=== PATIENT | male | born 1965 | race Caucasian/White ===

== ENCOUNTER 2022-12-24 16:15 | Outpatient (RCR) | payer BC, SELFPAY | END 2023-02-21 08:48 | disposition home or self-care (01) | PROVIDERS: PCP Pediatrics; Visit Provider Family Medicine | DX: R10.32 Left lower quadrant pain (principal); Z51.89 Encounter for other specified aftercare | CPT/HCPCS: 97110; 97140; 97161 ==

== ENCOUNTER 2023-04-15 06:16 | Day surgery (SDC) | payer BC, SELFPAY ==
[2023-04-15] VITALS (7 sets, daily range): BP systolic 115–139; BP diastolic 84–95; PULSE 68–80; RESP 14–16; TEMP 36.3–36.7; O2SAT 94–99; BMI 28.5
--- OUTSIDE RECORDS SUMMARY | 2023-04-15 06:19 | XMS_ITS | Continuity of Care Document ---
Author Name Unknown Organization [facility] Address [address] [place] [address] Phone Care Team Providers Care Ornamental Ironworking Supervisor Name Role Phone Mat Moyer MD Unavailable Unavailable Allergies, Adverse Reactions, Alerts Substance Reaction Status Criticality trimethoprim Hives Active No Information sulfamethoxazole Hives Active No Informat ion Medications Medication Instructions Dosage Effective Dates (start - stop) Status Comments ADVIL (unknown strength) Not Available - Active Procedures Procedure Date Office/Outpatient Visit,[facility] 2015 X-Ray Exam Lwr Spine, Min 4 Views Office/Outpatient Visit,Est, Mod 2011 X-Ray Exam Of Neck Spine2-3 Views Office/Outpatient Visit,Est, Mod 2011 X-Ray Exam Of Neck Spine2-3 Views Postop Followup Visit X-Ray Exam Of Neck Spine2-3 Views Neck Spine Fuse & Removal Addl 12 Insert Spine Fix Dev, Ant, 2-3 Seg Allograft, Spine Surg, Structural Assist Neck Spine Fuse & Removal Addl Ma Assist Insert Spine Fix Dev, Ant, 2-3 Se g Office/Outpatient Visit,[facility] [place] 2011 X-Ray Exam Of Neck Spine2-3 Views Advance Directives Directive Yes / No Effective Date File Name No Information Encounters Encounter Description Practice Location Reason(s) For Visit Diagnoses Date Provider Providers Copied on Encounter Office/Outpa tient Visit,[facility], [address], [place], [place], [address], [place] tel:[phone] [facility] OverweightSpi nal stenosis, lumbar regionSpondyl olysis, lumbar regionOther spondylosis, lumbar region Apr- [address] [facility], [address] [place] [address], [address], [place], [place], [address] , [place]. tel:[phone] Referring Provider: Mat Moyer, [facility] [address], [address], [place], [address]. tel:[phone] Office/Outpa tient Visit,Est, Mod Z [facility], [address] [place], [place] [address]Suite [facility] [place], [place], [address], [place] tel:[phone] [facility] No Information [address] [facility] [place], [address], [address], [place], [place], [address] , [place]. tel:[phone] Referring Provider: Brayan Fair, [facility] [address] [place], [address]. tel:[phone] Office/Outpa tient Visit,Est, Mod Z [facility], [address] [place], [place] [address] [place] [address], [address], [place] tel:[phone] [facility] [employer] No Information [address] [facility], [address], [address], [place], [place], [address] , [place]. tel:[phone] Referring Provider: Brayan Fair, [facility] [address] [place], [address]. tel:[phone] [facility], [address] [place], [place] [address] [place] [address], [address], [place] tel:[phone] [facility] No Information [address] [facility] [place], [address], [address], [place], [place], [address] , [place]. tel:[phone] Referring Provider: Brayan Fair, [facility] [address] [place], [address]. tel:[phone] [facility], [address], [place], [address], [place] tel:[phone] [facility] [place] No Information August-1 5-[address] [facility], [address] [place] [address], [address], [place], [place], [address] , [place]. tel:[phone] [facility], [address], [place], [address], [place] tel:[phone] [facility] No Information August-0 4-201 2 Perra Mat. [facility], [address] [place] [address], [address], [place], [place], [address] , [place]. tel:[phone] Referring Provider: Brayan Fair, [facility] [address] [place], [address]. tel:[phone] Office/Outpa tient Visit,[facility] Z [facility] [place], [address], [place], [address], [place] tel:[phone] [facility] Sleep Apnea, [place] August-0 2-201 2 Perra Mat. [facility], [address] [place] [address], [address], [place], [place], [address] , [place]. tel:[phone] Referring Provider: Brayan Fair, [facility] [address] [place], [address]. tel:[phone] Family History Family Member Type Diagnosis Age At Onset Problem (finding) Family history of cance r of colon Brother Problem (finding) Mitral valve prolapse Payers Payer name Insurance type Covered alliance party ID Jagdeep hickey(s) [facility] [id number] [facility] [id number] Social History Type Description Quantity Date Captured Comments Alcohol Use Details Unknown Caffeine Use Details Unknown Tobacco Use Status No Information Smoking Status No Information Sex Male Vital Signs Date / Time: Height Weight BMI Pulse Rate Blood Pressure Temperature Respiratory Rate Body Surface Area Head Circumference Head Circ. Percentile Wt./Jean Marie. Percentile BMI percentile Pulse Ox Inhaled Ox 3:25 PM 72.83 in 93.168 kg (205.40 lbs) 27.2 2 kg/m eter (2) 90 /min 140/87 mm[Hg] Chief Complaint And Reason For Visit No Information Reason For Referral Reason For Referral No Information Plan Of Treatment Date Type Action Status Future Order: Radiology Order AP /Lat/Flex/Ext Lumb (APLatFlExL), Ordered on: Ordered History Of Present Illness Encounter Date Complaint History Of Prese nt Illness No Information Functional Status Date Functional Assessmen t No Information Instructions Date Instruction Additional Infor mation Weight Management Education Rela evan to Overweight Weight management: I nstructed to return to General Practitioner timeframe: 1 Month. Related to Overweight Assessments Type Assessment Date assessment Overweight Patient Care Teams Name Effective Dates (start - stop) Status Members No Information
--- OUTSIDE RECORDS SUMMARY | 2023-04-15 06:19 | XMS_ITS | Continuity of Care Document ---
Author Name Unknown Organization [facility] Address [address] [address] [place] [address] Phone Care Team Providers Care Plant Breeder Scientist Name Role Phone Joy Kaufman CRNA Unavailable Unavailabl e Allergies, Adverse Reactions, Alerts Substance Reaction Status Criticality trimethoprim hives, swelling Active No Informati on sulfamethoxazole hives, swelling Active No Infor mation Medications Medication Instructions Dosage Effective Dates (start - stop) Status Comments Tylenol 325 mg tablet take 2 tablet by oral route every 6 hours as needed as needed 650 MG - Active CALCIUM (unknown strength) spray 2 tablet by oral route every day Not Available - Active Procedures Procedure Date Colonoscopy Flex; Dx (dec) 20 Colonoscopy Flex; W/remov Les- 15 Level Iv-surg Path Gross/micro 15 Advance Directives Directive Yes / No Effective Date File Name No Information Encounters Encounter Description Practice Location Reason(s) For Visit Diagnoses Date Provider Providers Copied on Encounter [facility], [address] [address], [place], [place], [address], [place] tel:[phone] [facility] No Information 0 Shae Hamilton. [address] [place] [address], [facility] [address], [place], [place], [address], [place]. tel:[phone] Referring Provider: Juarez Hyatt MD P, [address] [facility] [address], [place], [address]. tel:[phone] [facility], [address] [address], [place], [place], [address], [place] tel:[phone] [facility] Screening ColonoscopyDive rticula of colonPersonal history of colonic polypsFamily history of colonic polyps Sep-3 0 Edmar Pizarro . [address] [facility], [place], [address], [place]. tel:[phone] Referring Provider: Casey Mcdermott , [address], [place], [address]. [phone] [facility], [address] [address], [place], [address], [place] tel:[phone] [facility] No Information Sep- 0 Edmar Pizarro . [address] [facility], [place], [address], [place]. tel:[phone] [facility], [address] [address], [place], [address], [place] tel:[phone] [facility] Family history of colon cancerColon polypColon Cancer ScreeningFamily Hx GI Tract CancerBenign Neoplasm Colon Julio- 5 Luis Daniel Trotter. [address] [facility], [place], [address], [place]. tel:[phone] Referring Provider: Casey Mcdermott , [address], [place], [address]. tel:[phone] [facility], [address] [address], [place], [address], [place] tel:[phone] [facility] External Referral Jul- Darwin Albarran. [address] [facility], [place], [place], [address], [place]. tel:[phone] Referring Provider: Casey Mcdermott , [address], [place], [address]. tel:[phone] Family History Family Member Type Diagnosis Age At Onset Father Problem (finding) cancer of colon (Cause Of ) 60 Son Problem (finding) Alive and well Brother Problem (finding) Alive and well Sister Problem (finding) Alive and well Mother Problem (finding) Alive and well Father Problem (finding) Brother Problem (finding) Colon polyps Immunizations Vaccine Date Status Comments tetanus and diphtheria toxoi ds, adsorbed, preservative free, for adult use (5 Lf of tetanus toxoid and 2 Lf of diphtheria toxoid) administered Note: [facility] bi-direct ional interface ; Source: Other Registry Fluzone Quad 6mo or older administered Note: [facility] bi-direct ional interface ; Source: Other Registry influenza virus vaccine, unspecified formulation administered Note: [facility] bi-di rectional interface ; Source: Other Registry Fluzone Quad 6mo or older administered Note: [facility] bi-direct ional interface ; Source: Other Registry Influenza administered Note: [facility] bi-d irectional interface ; Source: Other Registry tetanus toxoid, reduced diphtheria toxoid, and acellular pertussis vaccine, adsorbed administered Note: [facility] b i-directional interface ; Source: Other Registry influenza virus vaccine, unspecified formulation administered Note: [facility] bi-di rectional interface ; Source: Other Registry Influenza, seasonal, injectable administe red Note: [facility] bi- directional interface ; Source: Other Registry Influenza, seasonal, injectable administe red Note: [facility] bi- directional interface ; Source: Other Registry diphtheria, tetanus toxoids and acellular pertussis vaccine administered Note: [facility] b i-directional interface ; Source: Other Registry tetanus and diphtheria toxoi ds, adsorbed, preservative free, for adult use (2 Lf of tetanus toxoid and 2 Lf of diphtheria toxoid) administered Note: [facility] bi-direct ional interface ; Source: Other Registry Payers Payer name Insurance type Covered alliance party ID Authoriza tion(s) [facility] [id number] Social History Type Description Quantity Date Captured Comments Sex Male Smoking Status No Information Chief Complaint And Reason For Visit No Information Reason For Referral Reason For Referral No Information Plan Of Treatment Date Type Action Status Referral Ordered: Colonoscopy Appointment date/timeframe: 10/06/2014 ordered History Of Present Illness Encounter Date Complaint History Of Prese nt Illness No Information Functional Status Date Functional Assessmen t No Information Instructions Date Instruction Additional Infor mation Diverticulosis/Diverticulitis Re lated to Diverticula of colon Colon Cancer Prevention Related to Diverticula of colon High Fiber Diet Related to Diver ticula of colon Colon Polyps Related to Colon polyp Colon Cancer Prevention Related to Colon polyp Assessments Type Assessment Date No Information Patient Care Teams Name Effective Dates (start - stop) Status Members No Information
--- OUTSIDE RECORDS SUMMARY | 2023-04-15 06:19 | XMS_ITS | Continuity of Care Document ---
Author Name Unknown Organization [facility] Address [address] [place] [address] Phone Care Team Providers Care Wire Stripper Name Role Phone Mat Moyer MD Unavailable Unavailable Allergies, Adverse Reactions, Alerts Substance Reaction Status Criticality trimethoprim Hives Active No Information sulfamethoxazole Hives Active No Informat ion Medications Medication Instructions Dosage Effective Dates (start - stop) Status Comments ADVIL (unknown strength) Not Available - Active Procedures Procedure Date Office/Outpatient Visit,[facility] 2015 X-Ray Exam Lwr Spine, Min 4 [...] Fix Dev, Ant, 2-3 Se g Office/Outpatient Visit,[facility] 2011 X-Ray Exam Of Neck Spine2-3 Views Advance Directives Directive Yes / No Effective Date File Name No Information Encounters Encounter Description Practice Location Reason(s) For Visit Diagnoses Date Provider Providers Copied on Encounter Office/Outpa tient Visit,[facility], [address], [place], [place], [address], [place] tel:[phone] [facility] OverweightSpi nal stenosis, lumbar regionSpondyl olysis, lumbar regionOther spondylosis, lumbar region Apr- 6 João Rivero. [facility], [address] [place] [address], [address], [place], [place], [address] , [place]. tel:[phone] Referring Provider: Mat Moyer, [facility] [address], [address], [place], [address]. tel:[phone] Office/Outpa tient Visit,Est, Mod Z [facility], [address] [place], [place] [address]Suite [facility], [place], [address], [place] tel:[phone] [facility] No Information 2 João Rivero. [facility] [place], [address], [address], [place], [place], [address] , [place]. tel:[phone] Referring Provider: Brayan Fair, [facility] [address] [place], [address]. tel:[phone] Office/Outpa tient Visit,Est, Mod Z [facility], [address] [place], [place] [address] [place] [address], [address], [place] tel:[phone] [facility] [employer] No Information 2 João Rivero. [facility], [address], [address], [place], [place], [address] , [place]. tel:[phone] Referring Provider: Brayan Fair, [facility] [address] [place], [address]. tel:[phone] Z [facility], [address] [place], [place] [address] [place] [address], [address], [place] tel:[phone] [facility] No Information 2 João Rivero. [facility] [place], [address], [address], [place], [place], [address] , [place]. tel:[phone] Referring Provider: Brayan Fair, [facility] [address] [place], [address]. tel:[phone] Z [facility], [address], [place], [address], [place] tel:[phone] [facility] [place] No Information August-1 5-201 2 Perra Mat. [facility], [address] [place] [address], [address], [place], [place], [address] , [place]. tel:[phone] Z [facility], [address], [place], [address], [place] tel:[phone] [facility] No Information August-0 4-201 2 Perra Mat. [facility], [address] [place] [address], [address], [place], [place], [address] , [place]. tel:[phone] Referring Provider: Brayan Fair, [facility] [address] [place], [address]. tel:[phone] Office/Outpa tient Visit,[facility] Z [facility] [place], [address], [place], [address], [place] tel:[phone] [facility] Sleep Apnea, [place] August-0 2-201 2 Perra Mat. [facility], [address] [place] [address], [address], [place], [place], [address] , [place]. tel:[phone] Referring Provider: Brayan Fair, [facility] [address] [place], [address]. tel:[phone] Family History Family Member Type Diagnosis Age At Onset Problem (finding) Family history of cance r of colon Brother Problem (finding) Mitral valve prolapse Payers Payer name Insurance type Covered libertarian ID Jagdeep hickey(s) [facility] [id number] [facility] [id number] Social History Type Description Quantity Date Captured [...]
--- OUTSIDE RECORDS SUMMARY | 2023-04-15 06:19 | XMS_ITS | Continuity of Care Document ---
Author Name Unknown Organization [facility] Address [address] [address] [place] [address] Phone Care Team Providers Care Parboiler Name Role Phone Joy Kaufman CRNA Unavailable [...] Diagnoses Date Provider Providers Copied on Encounter [facility], [address] [address], [place], [place], [address], [place] tel:[phone] [facility] No Information 0 Shae Hamilton. [address] [place] [address], [facility] [address], [place], [place], [address], [place]. tel:[phone] Referring Provider: Juarez Hyatt MD P, [address] [facility] [address], [place], [address]. tel:[phone] [facility], [address] [address], [place], [address], [place] tel:[phone] [facility] Screening ColonoscopyDive rticula of colonPersonal history of colonic polypsFamily history of colonic polyps Sep-3 0 Edmar Pizarro . [address] [facility], [address], [place], [address], [place]. tel:[phone] Referring Provider: Casey Mcedrmott , [address], [place], [address]. [phone] [facility], [address] [address], [place], [address], [place] tel:[phone] [facility] No Information Sep- 0 Edmar Pizarro . [address] [facility], [address], [place], [address], [place]. tel:[phone] [facility], [address] [address], [place], [address], [place] tel:[phone] [facility] Family history of colon cancerColon polypColon Cancer ScreeningFamily Hx GI Tract CancerBenign Neoplasm Colon Julio- 5 Luis Daniel Trotter. [address] [facility], [address], [place], [address], [place]. tel:[phone] Referring Provider: Casey Mcdermott , [address], [place], [address]. tel:[phone] [facility], [address] [address], [place], [address], [place] tel:[phone] [facility] External Referral Jul- Darwin Albarran. [address] [facility], [address], [place], [place], [address], [place]. tel:[phone] Referring Provider: Casey Mcdermott , [address], [place], [address]. tel:[phone] Family History Family Member Type Diagnosis Age [...] Registry Payers Payer name Insurance type Covered libertarian ID Authoriza tion(s) [facility] [id number] Social History Type Description Quantity Date Captured [...]
[2023-04-15] MEDS: BUPIVACAINE 0.5% 30 ML INJECTION (07:21)
[2023-04-15] MEDS: lidocaine HCL 2 % MULTIDOSE 20 ML VIAL INJECTION (07:21)
--- NOTE | 2023-04-15 08:37 | PM.ORPRC ---
Procedure Note Date of procedure: 04/15/23 Procedure: Preop diagnosis: Left hand ring finger stenosing tenosynovitis Postop diagnosis: Left hand ring finger stenosing tenosynovitis Procedure: Left hand ring finger A1 telma release Anesthesia: Local Surgeon: Moose Hong MD anesthesiologists' assistant: Shari Marmolejo PA-C EBL: 0 mL Complications: None Specimens: None Drains: None Preoperative antibiotics: None Indications: The patient has a history of left upper extremity ring finger painful catching and locking. Despite appropriate non operative management including flexor tendon sheath corticosteroid injections they continue to have symptoms. Operative intervention was recommended. The risks, benefits alternatives and expected outcomes were discussed in detail. These included but were not limited to: Infection, bleeding, injury to blood vessel or nerve, venous thromboembolism. All questions were answered to their satisfaction. The patient was placed supine on the operating room table. Local anesthesia was established with 0.5% Marcaine without epinephrine and 2% lidocaine without epinephrine. The hand was prepped and draped in usual sterile fashion. The limb was elevated the forearm pneumatic tourniquet was inflated to 250 mm of mercury. A transverse incision was made centered over the base of the ring finger in distal palmar crease. Subcutaneous dissection was taken through the palmar fascia to the flexor tendons with the tenotomy scissors. The A1 telma was released with the 15 blade and a tenotomy scissors. Active flexion and extension of the finger shows no catching or locking, no bowstringing of the flexor tendons. The wound was closed with interrupted nylon sutures. A dry dressing was applied the tourniquet was released. Sponge and needle counts were correct x 2. The patient tolerated the procedure well, there were no apparent complications. They were sent to same day surgery in satisfactory condition. Plan: Use of the hand as tolerates. Discontinue the intraoperative dressing on postoperative day 3 and may get the wound wet as tolerates. Follow up in the office in 2 weeks for a wound check and suture removal.
== END 2023-04-15 08:19 | disposition home or self-care (01) ==
PROVIDERS: PCP Family Medicine; Visit Provider Orthopaedic Surgery
PROC: (CPT 26055; principal; 2023-04-15 07:15)
DX: M65.342 Trigger finger, left ring finger (principal); M65.842 Other synovitis and tenosynovitis, left hand
CPT/HCPCS: 26055; J0665

== ENCOUNTER 2024-04-28 10:13 | Inpatient (IN) | payer BC, SELFPAY ==
[2024-04-28] VITALS (7 sets, daily range): BP systolic 104–136; BP diastolic 68–91; PULSE 66–103; RESP 14–24; TEMP 36–37.3; O2SAT 92–99; BMI 29.2
--- OUTSIDE RECORDS SUMMARY | 2024-04-28 10:15 | XMS_ITS | Referral Summary ---
Author Organization [place] Address Formerly [facility] [place] [address] Care Team Providers Care Auto Accessories Installer Name Role Phone Casey Atkins MD Primary Care Provide r Allergies Active Allergy Reactions Criticality Noted Date Comments Sulfamethoxazole Hives 05/27/2011 Trimethoprim Swelling 03/19/2021 Medications CALCIUM PO Take 2 tablets by mouth daily Active Ascorbic Acid (VITAMIN C PO) Take 1 tablet by mouth daily Active TURMERIC PO Take 1 tablet by mouth daily Active acetaminophen (TYLENOL) 325 MG tabletIndications:Deg enerative spondylolisthesis Take 2 tablets (650 mg) by mouth every 4 hours as needed for other (multimodal surgical pain management along with NSAIDS and opioid medication as indicated based on pain control and physical function.) 04/14/20 Active Additional Information Patient not taking.Reported on 03/19/2021 Vitamin D3 (CHOLECALCIFEROL) 125 MCG (5000 UT) tabletIndications:Deg enerative spondylolisthesis Take 2 tablets (250 mcg) by mouth daily 04/14/20 20 Active Active Problems Problem Noted Date Diagnosed Date Degenerative spondylolisthesis 04/11/2020 Cervical vertebral fusion 03/03/2018 Fracture of thoracic spine 07/05/2013 Overview (07/05/2013): 1987 PRATIMA (obstructive sleep apnea) 07/05/2013 Overview (03/05/2018): CPAP Hemorrhage of gastrointestinal tract 07/05/2013 Overview (01/27/2015): EGD in past Problem list name updated by automated process. Provider to review Cervical disc disease with myelopathy 08/28/2011 Family history of colon cancer 02/28/2011 Overview (02/28/2011): Father at 62 Resolved Problems Problem Noted Date Diagnosed Date Resolved Date Health Alf 01/26/2013 10/13/2023 Overview (01/26/2013): State Tier Level: 0 Status: N/A Crossbow Maker: N/A See Letters for [facility] Care Plan ACP (advance care planning) 08/28/2011 03/04/2018 Overview (07/05/2013): Advance Care Planning: ACP Review and Resources Provided: Reviewed chart for advance care plan. Addison Narvaez has no plan or code status on file however states presence of ACP document. Copy requested. Confirmed code status reflects current choices pending receipt of document/advance care plan review. Confirmed/documented designated decision maker(s). See permanent comments section of demographics in clinical tab. Added by Desirae Wheatley on 07/05/2013 Elevated blood pressure read ing without diagnosis of hypertension 07/18/2006 02/28/2011 Immunizations Name Administration Dates Next Due DTAP (<7y) 06/25/2005 Flu, Unspecified 02/09/2018,02/23/2013 Influenza (IIV3) PF 02/04/2013,02/12/2012,2009 Influenza Vaccine >6 months,quad, PF 02/12/2018, 03/17/2017 TD,PF 7+ (Tenivac) 01/02/2019,04/28/2006 TDAP Vaccine (Boostrix) 07/05/2013 Social History Tobacco Use Types Packs/Day Years Used Date Smoking Tobacco: Never Smokeless Tobacco: Never Alcohol Use Standard Drinks/Week Comments Yes 6 (1 standard drink = 0.6 oz pur e alcohol) casual AUDIT-C Answer Date Recorded Q1: How often do you have a drink containing alc ohol? 2-3 times a week 11/23/2019 Q2: How many drinks containi ng alcohol do you have on a typical day when you are drinking? 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 Not on file Not on fi le Last Filed Vital Signs Vital Sign Reading Time Taken Comments Blood Pressure 134/86 03/19/2021 8:15 AM CD STORAGE AND MATERIALS MAKE UP HELPER Pulse 87 03/19/2021 8:15 AM CD STORAGE AND MATERIALS MAKE UP HELPER Temperature 36.6 C (97.9 F) 03/19/2021 8:15 AM CD STORAGE AND MATERIALS MAKE UP HELPER Respiratory Rate 22 03/19/2021 8:15 AM CD STORAGE AND MATERIALS MAKE UP HELPER Oxygen Saturation 95% 03/19/2021 8:15 AM CD STORAGE AND MATERIALS MAKE UP HELPER Inhaled Oxygen Concentration - - Weight 92.1 kg (203 lb) 03/19/2021 8:15 AM CD STORAGE AND MATERIALS MAKE UP HELPER Height 182.9 cm (6') 03/19/2021 8:15 AM CD STORAGE AND MATERIALS MAKE UP HELPER Body Mass Index 27.53 03/19/2021 8:15 AM CD STORAGE AND MATERIALS MAKE UP HELPER Plan of Treatment Not on file Medical Devices Implanted Type Area Demonstrator Sewing Techniques Device Identifier Shelf Expiration Date Model / Serial / Lot Imp Scr Cervical Medt Bear 4.0x15mm St Fa [id number] Implanted:Qty: 4 on 03/03/2018 by Sam Durant MD at [facility] Metallic Hardware/An chor N/A: Spine Cervical [employer] [id number] / / [id number] 2018 [facility] Strut 6mm X 14mm X 11mm Implanted:Qty: 1 on 03/03/2018 by Sam Durant MD at [facility] N/A: Spine Cervical [employer] 10/10/2025 [id number] / / [id number] End Cap 10mm X 14mm X 11mm Implanted:Qty: 1 on 03/03/2018 by Sam Durant MD at [facility] N/A: Spine Cervical [employer] 02/26/2025 [id number] / / [id number] End Cap 9mm X 14mm X 11mm Implanted:Qty: 1 on 03/03/2018 by Sam Durant MD at [facility] N/A: Spine Cervical [employer] 11/13/2025 [id number] / / [id number] Bear T Plate 45mm Implanted:Qty: 1 on 03/03/2018 by Sam Durant MD at [facility] N/A: Spine Cervical [employer] [id number] / / [id number] 2017 Imp Donnie 55mm Implanted:Qty: 1 on 04/11/2020 by Sam Durant MD at [facility] N/A: Spine Lumbar [id number] / / 41 02 [id number] Imp Donnie 60mm Implanted:Qty: 1 on 04/11/2020 by Sam Durant MD at [facility] N/A: Spine Lumbar [id number] 009 / / 41 02 [id number] Imp 6.5mm X 50mm Screw Implanted:Qty: 6 on 04/11/2020 by Sam Durant MD at [facility] N/A: Spine Lumbar [id number] / / 41 02 [id number] Imp Locking Nut Implanted:Qty: 6 on 04/11/2020 by Sam Durant MD at [facility] N/A: Spine Lumbar [id number]. [id number] / / 41 02 [id number] Str Spacer [id number] Convex Implanted:Qty: 1 on 04/11/2020 by Sam Durant MD at [facility] N/A: Spine Lumbar 05/28/2024 [id number] / / [id number] Imp Str Spacer [id number] Convex Implanted:Qty: 1 on 04/11/2020 by Sam Durant MD at [facility] N/A: Spine Lumbar 07/27/2023 [id number] / / [id number] Explanted Type Area Demonstrator Sewing Techniques Device Identifier Shelf Expiration Date Model / Serial / Lot Imp One Level Cervical Plate And 4 Screws Explanted:Qty: 1 on 03/03/2018 by Sam Durant MD at [facility] N/A: Spine Cervical [employer] Insurance [facility] CHOICE [employer] [facility] Advance Directives For more information, please contact: [phone] Documents on File Type Date Recorded Patient Associate Account Director Expl anation Advance Directives and Living Will 03/07/2018 2:32 PM Health Care Directiv e 12-13-13 * Full Code (Latest Code Status on File) Date Activated Date Inactivated Comments 04/14/2020 8:23 AM Question Answer Comments Code status determined by: Other (please camila t) * Full Code Date Activated Date Inactivated Comments 04/11/2020 4:09 PM 04/14/2020 8:23 AM All basic and advanced life-sustaining interventions are performed as appropriate Question Answer Comments Code status determined by: Other (please camila t) * Full Code Date Activated Date Inactivated Comments 03/05/2018 8:24 AM 04/11/2020 5:24 AM Physician shanna lara Question Answer Comments Code status determined by: Other (please camila t) * Full Code Date Activated Date Inactivated Comments 03/03/2018 2:01 PM 03/05/2018 8:24 AM Question Answer Comments Code status determined by: Other (please camila t) Healthcare Agents on File Name Relationship Healthcare Agent Relationshi p Communication Harjit Narvaez [facility] Health Care Agent Sanjeev Rose [facility] Health Care Agent Care Teams Auto Accessories Installer Relationship Specialty Start Date End Date Casey Atkins MD [address], [address] [address] PCP - General Family Practice 06/07/13
--- OUTSIDE RECORDS SUMMARY | 2024-04-28 10:15 | XMS_ITS | Clinical Summary ---
Author Organization [place] Address [facility]0 [facility] [place] [address] Care Team Providers Care Museum Archivist Name Role Phone Casey Atkins MD Primary [...] Noted Date Diagnosed Date Resolved Date Health Longterm 01/26/2013 10/13/2023 Overview (01/26/2013): State Tier Level: 0 Status: N/A Direct Mail Marketer: N/A See Letters for [facility] Care Plan ACP (advance care [...] 7+ (Tenivac) 01/02/2019,04/28/2006 TDAP Vaccine (Boostrix) 07/05/2013 Family History Medical History Relation Comments Cancer - colorectal Father Colon Cancer Father Hypertension Father C.A.D. 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 on fi le Last Filed Vital Signs Vital Sign Reading Time Taken Comments Blood Pressure 134/86 03/19/2021 8:15 AM SHED BOSS Pulse 87 03/19/2021 8:15 AM SHED BOSS Temperature 36.6 C (97.9 F) 03/19/2021 8:15 AM SHED BOSS Respiratory Rate 22 03/19/2021 8:15 AM SHED BOSS Oxygen Saturation 95% 03/19/2021 8:15 AM SHED BOSS Inhaled Oxygen Concentration - - Weight 92.1 kg (203 lb) 03/19/2021 8:15 AM SHED BOSS Height 182.9 cm (6') 03/19/2021 8:15 AM SHED BOSS Body Mass Index 27.53 03/19/2021 8:15 AM SHED BOSS Plan of Treatment Not on file Medical Devices Implanted Type Area Wastewater Treatment Operator Device Identifier Shelf Expiration Date Model / Serial / Lot Imp Scr Cervical Medt Lastrup 4.0x15mm St Fa [id number] Implanted:Qty: 4 on 03/03/2018 by Sam Durant MD at [facility] Metallic Hardware/An chor N/A: Spine Cervical [employer] [id number] / / [id number] 2017 [facility] Strut 6mm X 14mm X 11mm Implanted:Qty: 1 on 03/03/2018 by Sam Durant MD at [facility] N/A: Spine Cervical [employer] 10/10/2025 [id number] / / [id number] End Cap 10mm X 14mm X 11mm Implanted:Qty: 1 on 03/03/2018 by Sam Durant MD at [facility] N/A: Spine Cervical [employer] 02/26/2025 [id number] / / [id number] End Cap 9mm X 14mm X 11mm Implanted:Qty: 1 on 03/03/2018 by Sam Durant MD at [facility] N/A: Spine Cervical [employer] 11/13/2025 [id number] / / [id number] Lastrup T Plate 45mm Implanted:Qty: 1 on 03/03/2018 by Sam Durant MD at [facility] N/A: Spine Cervical [employer] [id number] / / [id number] 2017 Imp Donnie 55mm Implanted:Qty: 1 on 04/11/2020 by Sam Durant MD at [facility] N/A: Spine Lumbar [id number]. 008 / / 41 02 [id number] Imp Donnie 60mm Implanted:Qty: 1 on 04/11/2020 by Sam Durant MD at [facility] N/A: Spine Lumbar [id number]. 009 / / 41 02 [id number] Imp 6.5mm X 50mm Screw Implanted:Qty: 6 on 04/11/2020 by Sam Durant MD at [facility] N/A: Spine Lumbar [id number] / / 41 02 [id number] Imp Locking Nut Implanted:Qty: 6 on 04/11/2020 by Sam Durant MD at [facility] N/A: Spine Lumbar [id number]. 001 / / 41 02 [id number] Str Spacer [id number] Convex Implanted:Qty: 1 on 04/11/2020 by Sam Durant MD at [facility] N/A: Spine Lumbar 05/28/2024 [id number] / / [id number] Imp Str Spacer [id number] Convex Implanted:Qty: 1 on 04/11/2020 by Sam Durant MD at [facility] N/A: Spine Lumbar 07/27/2023 [id number] / / [id number] Explanted Type Area Wastewater Treatment Operator Device Identifier Shelf Expiration Date Model / Serial / Lot Imp One Level Cervical Plate And 4 Screws Explanted:Qty: 1 on 03/03/2018 by Sam Durant MD at [facility] N/A: Spine Cervical [employer] [place] [address] [place] [employer] COMMERCIAL [facility] Advance Directives For more information, please contact: [phone] Documents on File Type Date Recorded Patient Electromedical Service Engineer Expl anation Advance Directives and Living Will 03/07/2018 2:32 PM Health Care Directiv e 12-13-13 * Full Code (Latest Code Status on File) Date Activated Date Inactivated Comments 04/14/2020 8:23 AM Question Answer Comments Code status determined by: Other (please gregn t) * Full Code Date Activated Date Inactivated Comments 04/11/2020 4:09 PM 04/14/2020 8:23 AM All basic and advanced life-sustaining interventions are performed as appropriate Question Answer Comments Code status determined by: Other (please camila t) * Full Code Date Activated Date Inactivated Comments 03/05/2018 8:24 AM 04/11/2020 5:24 AM Physician d etdominic Question Answer Comments Code status determined by: Other (please documen t) * Full Code Date Activated Date Inactivated Comments 03/03/2018 2:01 PM 03/05/2018 8:24 AM Question Answer Comments Code status determined by: Other (please camila saenz) Healthcare Agents on File Name Relationship Healthcare Agent Relationshi p Communication Harjit Dwyer Health Care Agent Sanjeev Rose [facility] Health Care Agent Care Teams Museum Archivist Relationship Specialty Start Date End Date Casey Atkins MD [address], [id number] [place] [id number] PCP - General Family Practice 06/07/13
--- OUTSIDE RECORDS SUMMARY | 2024-04-28 10:15 | XMS_ITS | Clinical Summary ---
Author Organization [facility] Address [address] [place] [address] [address] [place] [address] Care Team Providers Care Tip Cementer Name Role Phone Pcp, No MD Primary Care Provider Unavailabl e Provider, No Attributed RESOURCE Unavailable Unavailable Allergies Active Allergy Reactions Criticality Noted Date Comments Sulfa Drugs Hives (High) High 04/07/2022 Medications No known medications Active Problems No known active problems Immunizations Immunization Administration Dates Next Due TDAP 07/05/2013 Social History Tobacco Use Types Packs/Day Years Used Date Smoking Tobacco: Never Smokeless Tobacco: Never Tobacco Cessation:Counseling Given: Not Answered Alcohol Use Standard Drinks/Week Comments Yes 0 (1 standard drink = 0.6 oz pur e alcohol) social Sex and Gender Information Value Date Recorded Sex Assigned at Not on file Legal Sex Male 3:07 PM MATERIAL MIXER Gender Identity Not on file Sexual Orientation Not on file Last Filed Vital Signs Vital Sign Reading Time Taken Comments Blood Pressure 154/88 04/07/2022 3:19 PM MATERIAL MIXER Pulse 92 04/07/2022 3:19 PM MATERIAL MIXER Temperature 36.6 C (97.9 F) 04/07/2022 3:19 PM MATERIAL MIXER Respiratory Rate 16 04/07/2022 3:19 PM MATERIAL MIXER Oxygen Saturation 97% 04/07/2022 3:19 PM MATERIAL MIXER Inhaled Oxygen Concentration - - Weight 98.4 kg (217 lb) 04/07/2022 3:19 PM MATERIAL MIXER Height 182.9 cm (6') 04/07/2022 3:19 PM MATERIAL MIXER Body Mass Index 29.43 04/07/2022 3:19 PM MATERIAL MIXER Plan of Treatment Health Maintenance Due Date Last Done Comments Hepatitis C Screening 1965 HIV One Time Screening Ages 15-65 1980 Hepatitis B Vaccine (1 of 3 - 19+ 3-dose series) 1984 Colorectal Cancer Screening 2010 Pneumococcal Vaccine 50yr + (1 of 1 - PCV) 2015 Zoster Vaccine (1 of 2) 2015 TDAP/TD VACCINE (2 - Td or Tdap) 07/06/2023 07/05/2013 Covid-19 Vaccine (3 - season) 2023 05/21/2021, 04/23/2021 Influenza Vaccine (#1) 2023 8, 02/09/2018, 03/17/2017, Additional history exists Diabetes Screening 07/25/2025 07/25/2022, 1 05/19/2020, 04/12/2020, Additional history exists Lipid Screening 07/26/2027 07/25/2022, 03/19/2021 Pneumococcal Vaccine (0-5yr; and At-risk 6-49yr) Aged Out No longer el igible based on patient's age to complete this topic Care Teams Tip Cementer Relationship Specialty Start Date End Date Pcp, No, You have no PCP on file PCP - General 04/07/22 Provider, No Attributed, RESOURCE [address] PCP - Attributed Provider 04/24/22
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
--- OUTSIDE RECORDS SUMMARY | 2024-04-28 10:15 | XMS_ITS | Continuity of Care Document ---
Author Name [email or web address] Address Unknown Organization Unknown Address Unknown Procedures FILTER APPLIED:Only known Procedures with Onset Date within the last 5 years Procedure Date Procedure Provider Additional Inform ation Status TENDON SHEATH INCISION (16066) Completed PT EVAL LOW COMPLEX 20 MIN (55716) Completed THERAPEUTIC EXERCISES (43686) Completed MANUAL THERAPY 1/> REGIONS (70946) Completed Encounters FILTER APPLIED:Only known Encounters with Admission Date within the last 5 years Encounter Location Admission Discharge Billing Code [employer] Consultant Alfie montero Outpatient Marty Holguin Outpatient Jose on [place]
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
--- NOTE | 2024-04-28 10:31 | CRLHL7_ITS ---
For Patients: As a result of the Century Cures Act, medical imaging exams and procedure reports are released immediately into your electronic medical record. You may view this report before your referring provider. If you have questions, please contact your health care provider. INDICATION: Severe abdominal pain. TECHNIQUE: CT abdomen and pelvis with contrast. COMPARISON: None. FINDINGS: Lower chest: Basilar atelectasis Liver: Normal in size and attenuation. No suspicious masses. Gallbladder and bile ducts: No stones or inflammation. No biliary dilatation. Pancreas: Peripancreatic inflammatory stranding. Normal enhancement of the pancreas. No duct dilatation. Spleen: Normal in size. No masses. Adrenal glands: Normal in size. No nodules. Kidneys: Too small to characterize low-attenuation lesion left kidney. GI tract: Unremarkable. Normal in caliber. No sign of mass or inflammation. Normal appendix. Vasculature: Abdominal aorta is normal in caliber. Lymph nodes: No lymphadenopathy. Peritoneum/Abdominal Wall: Small fat containing umbilical hernia. Pelvis: Unremarkable. No pelvic masses. Bones: No suspicious bony lesions. Fusion changes of the lumbar spine IMPRESSION: 1. Peripancreatic inflammatory stranding about the pancreas. Normal enhancement of the pancreas. Findings likely reflecting pancreatitis recommend correlation with laboratory exams. Please note that all CT scans at this facility use dose modulation, iterative reconstruction, and/or weight-based dosing when appropriate to reduce radiation dose to as low as reasonably achievable. Dictated by Cate Hess MD @ 04/28/2024 11:40:19 AM (Electronically Signed)
[2024-04-28] MEDS: MORPHINE 4 MG/ML INJ IVP (10:35)
[2024-04-28] MEDS: ONDANSETRON 2 MG/ML inj 4 MG IVP ×2 (10:37→14:40)
[2024-04-28 10:46] LABS: Lactate* 2.9 mmol/L (0.5-1.9)
[2024-04-28 10:50] LABS: Basophils Percent Auto 0.2 % (0.0-3.0); Hemoglobin* 15.5 gm/dL (13.5-17.5); Immature Granulocytes Pct Auto 0.1 %; Lymphocytes Percent Auto 5.3 % (20-44); Mean Corpuscular HGB Conc 34 gm/dL (32-36); Mean Corpuscular Hemoglobin 32 pg (26-34); Mean Corpuscular Volume 95 fL (80-100); Monocytes Percent Auto 1.7 % (0.0-11.0); Neutrophils Percent Auto 92.7 % (42.0-72.0); Platelet Count* 308 K/uL (140-440); RDW Coefficient of Variation % 12.1 % (11.5-15.5); Red Blood Count 4.87 m/uL (4.30-5.90); White Blood Count* 16.75 K/uL (4.50-11.00)
[2024-04-28] MEDS: KETOROLAC 15 MG/ML inj IVP (10:50)
[2024-04-28 10:57] LABS: Slide Review Reflex No
[2024-04-28 11:03] LABS: Albumin* 4.7 g/dL (3.3-5.0); Chloride* 106 mmol/L (96-114); Potassium* 3.6 mmol/L (3.6-5.1); Sodium* 139 mmol/L (135-149)
[2024-04-28 11:05] LABS: Anion Gap 8 mEq/L (7-15); Bilirubin Total* 0.9 mg/dL (0.1-1.5); Carbon Dioxide* 25 mmol/L (20-32); Creatinine* 0.9 mg/dL (0.5-1.5); Estimated Glomerular Filt Rate 98 ml/min
--- OUTSIDE RECORDS SUMMARY | 2024-04-28 11:05 | XMS_ITS | Continuity of Care Document ---
Author Name N[facility]IN User [email or web address] Address Unknown Organization Unknown Address Unknown Procedures FILTER APPLIED:Only known Procedures with Onset Date within the last 5 years Procedure Date Procedure Provider Additional Inform ation Status TENDON SHEATH INCISION (73953) Completed PT EVAL LOW COMPLEX 20 MIN (15195) Completed THERAPEUTIC EXERCISES (40308) Completed MANUAL THERAPY 1/> REGIONS (34705) Completed Encounters FILTER APPLIED:Only known Encounters with Admission Date within the last 5 years Encounter Location Admission Discharge Billing Code Design Maker Alfie montero Outpatient Marty [facility]guin Outpatient [facility] on [facility]
--- OUTSIDE RECORDS SUMMARY | 2024-04-28 11:05 | XMS_ITS | Clinical Summary ---
Author Organization [place] Address [facility] [place] [address] Care Team Providers Care Lathing Supervisor Name Role Phone Casey Atkins MD Primary [...] Noted Date Diagnosed Date Resolved Date Health Nursing Home 01/26/2013 10/13/2023 Overview (01/26/2013): State Tier Level: 0 Status: N/A Rose Grower: N/A See Letters for [facility] Care Plan ACP (advance care planning) 08/28/2011 [...] Cancer Father Hypertension Father C.A.D. 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 Not on file Not on fi le Last Filed Vital Signs Vital Sign Reading Time Taken Comments Blood Pressure 134/86 03/19/2021 8:15 AM ORACLE SCM CONSULTANT Pulse 87 03/19/2021 8:15 AM ORACLE SCM CONSULTANT Temperature 36.6 C (97.9 F) 03/19/2021 8:15 AM ORACLE SCM CONSULTANT Respiratory Rate 22 03/19/2021 8:15 AM ORACLE SCM CONSULTANT Oxygen Saturation 95% 03/19/2021 8:15 AM ORACLE SCM CONSULTANT Inhaled Oxygen Concentration - - Weight 92.1 kg (203 lb) 03/19/2021 8:15 AM ORACLE SCM CONSULTANT Height 182.9 cm (6') 03/19/2021 8:15 AM ORACLE SCM CONSULTANT Body Mass Index 27.53 03/19/2021 8:15 AM ORACLE SCM CONSULTANT Plan of Treatment Not on file Medical Devices Implanted Type Area Automobile Salesman Device Identifier Shelf Expiration Date Model / Serial / Lot Imp Scr Cervical Medt Marana 4.0x15mm St Fa [id number] Implanted:Qty: 4 on 03/03/2018 by Sam Durant MD at [facility] Metallic Hardware/An chor N/A: Spine Cervical [employer] [id number] / / [id number] 2017 [facility] Strut 6mm X 14mm X 11mm Implanted:Qty: 1 on 03/03/2018 by Sam Durant MD at [facility] N/A: Spine Cervical [employer] 10/10/2025 [id number] / / [id number] End Cap 10mm X 14mm X 11mm Implanted:Qty: 1 on 03/03/2018 by Sam Durant MD at [facility] N/A: Spine Cervical [employer] 02/26/2025 [id number] / / [id number] End Cap 9mm X 14mm X 11mm Implanted:Qty: 1 on 03/03/2018 by Sam Durant MD at [facility] N/A: Spine Cervical [employer] 11/13/2025 [id number] / / [id number] Marana T Plate 45mm Implanted:Qty: 1 on 03/03/2018 by Sam Durant MD at [facility] N/A: Spine Cervical [employer] [id number] / / [id number] 2017 Imp Donnie 55mm Implanted:Qty: 1 on 04/11/2020 by Sam Durant MD at [facility] N/A: Spine Lumbar [id number]. 008 / / 41 02 [id number] Imp Donnie 60mm Implanted:Qty: 1 on 04/11/2020 by Sam Durant MD at [facility] N/A: Spine Lumbar [id number]. 009 / / 41 02 [id number] Imp 6.5mm X 50mm Screw Implanted:Qty: 6 on 04/11/2020 by Sam Durant MD at [facility] N/A: Spine Lumbar [id number] / / 41 02 [id number] Imp Locking Nut Implanted:Qty: 6 on 04/11/2020 by Sam Durant MD at [facility] N/A: Spine Lumbar 07.17640. 001 / / 41 02 [id number] Str Spacer [id number] Convex Implanted:Qty: 1 on 04/11/2020 by Sam Durant MD at [facility] N/A: Spine Lumbar 05/28/2024 [id number] / / [id number] Imp Str Spacer [id number] Convex Implanted:Qty: 1 on 04/11/2020 by Sam Durant MD at [facility] N/A: Spine Lumbar 07/27/2023 [id number] / / [id number] Explanted Type Area Automobile Salesman Device Identifier Shelf Expiration Date Model / Serial / Lot Imp One Level Cervical Plate And 4 Screws Explanted:Qty: 1 on 03/03/2018 by Sam Durant MD at [facility] N/A: Spine Cervical [employer] Insurance MEDICA CHOICE [place] [employer] COMMERCIAL [facility] Advance Directives For more information, please contact: [phone] Documents on File Type Date Recorded Patient Office Service Coordinator Expl anation Advance Directives and Living Will [...] Harjit Dwyer Health Care Agent Sanjeev Rose [facility] Health Care Agent Care Teams Lathing Supervisor Relationship Specialty Start Date End Date Casey Atkins MD [address], [id number] [place] [id number] PCP - General Family Practice 06/07/13
--- OUTSIDE RECORDS SUMMARY | 2024-04-28 11:05 | XMS_ITS | Referral Summary ---
Author Organization [place] Address [facility] 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 on fi le Last Filed Vital Signs Vital Sign Reading Time Taken Comments Blood Pressure 134/86 03/19/2021 8:15 AM ENTEROSTOMAL THERAPY NURSE Pulse 87 03/19/2021 8:15 AM ENTEROSTOMAL THERAPY NURSE Temperature 36.6 C (97.9 F) 03/19/2021 8:15 AM ENTEROSTOMAL THERAPY NURSE Respiratory Rate 22 03/19/2021 8:15 AM ENTEROSTOMAL THERAPY NURSE Oxygen Saturation 95% 03/19/2021 8:15 AM ENTEROSTOMAL THERAPY NURSE Inhaled Oxygen Concentration - - Weight 92.1 kg (203 lb) 03/19/2021 8:15 AM ENTEROSTOMAL THERAPY NURSE Height 182.9 cm (6') 03/19/2021 8:15 AM ENTEROSTOMAL THERAPY NURSE Body Mass Index 27.53 03/19/2021 8:15 AM ENTEROSTOMAL THERAPY NURSE Plan of Treatment Not on file Medical Devices Implanted Type Area Beam Warper Device Identifier Shelf Expiration Date Model / Serial / Lot Imp Scr Cervical Medt [place] 4.0x15mm St Fa [id number] Implanted:Qty: 4 on 03/03/2018 by Sam Durant MD at [facility] Metallic Hardware/An chor N/A: Spine Cervical [employer] [id number] / / [id number] 2018 [facility] Strut 6mm X 14mm X 11mm Implanted:Qty: 1 on 03/03/2018 by Sam Durant MD at [facility] N/A: Spine Cervical [employer] 10/10/2025 [id number] / / [id number] End Cap 10mm X 14mm X 11mm Implanted:Qty: 1 on 03/03/2018 by Sam Durant MD at [facility] N/A: Spine Cervical [employer] 02/26/2025 [id number] / / [id number] End Cap 9mm X 14mm X 11mm Implanted:Qty: 1 on 03/03/2018 by Sam Durant MD at [facility] N/A: Spine Cervical [employer] 11/13/2025 [id number] / / [id number] [place] T Plate 45mm Implanted:Qty: 1 on 03/03/2018 by Sam Durant MD at [facility] N/A: Spine Cervical [employer] [id number] / / [id number] 2017 Imp Donnie 55mm Implanted:Qty: 1 on 04/11/2020 by Sam Durant MD at [facility] N/A: Spine Lumbar [id number]. 008 / / 41 02 [id number] Imp Donnie 60mm Implanted:Qty: 1 on 04/11/2020 by Sam Durant MD at [facility] N/A: Spine Lumbar 07.72618. 009 / / 41 02 [id number] Imp 6.5mm X 50mm Screw Implanted:Qty: 6 on 04/11/2020 by Sam Durant MD at [facility] N/A: Spine Lumbar [id number] / / 41 02 [id number] Imp Locking Nut Implanted:Qty: 6 on 04/11/2020 by Sam Durant MD at [facility] N/A: Spine Lumbar 07.28522. 001 / / 41 02 [id number] Str Spacer [id number] Convex Implanted:Qty: 1 on 04/11/2020 by Sam Durant MD at [facility] N/A: Spine Lumbar 05/28/2024 [id number] / / [id number] Imp Str Spacer [id number] Convex Implanted:Qty: 1 on 04/11/2020 by Sam Durant MD at [facility] N/A: Spine Lumbar 07/27/2023 [id number] / / [id number] Explanted Type Area Beam Warper Device Identifier Shelf Expiration Date Model / Serial / Lot Imp One Level Cervical Plate And 4 Screws Explanted:Qty: 1 on 03/03/2018 by Sam Durant MD at [facility] N/A: Spine Cervical [employer] Insurance [facility] CHOICE [employer] COMMERCIAL [facility] Advance Directives For more information, please contact: [phone] Documents on File Type Date Recorded Patient Recreation Director Expl anation Advance Directives and Living [...] Healthcare Agent Relationshi p Communication Harjit Narvaez [facility] Health Care Agent Sanjeev Rose [facility] Health Care Agent Care Teams Legal Financial Specialist Relationship Specialty Start Date End Date Casey Atkins MD [address], [address] [address] PCP - General Family Practice 06/07/13
--- OUTSIDE RECORDS SUMMARY | 2024-04-28 11:05 | XMS_ITS | Clinical Summary ---
Author Organization [employer] [facility] Address [address] [place] [address] [address] [place] [address] Care Team Providers Care Speech Therapy Teacher Name Role Phone Pcp, No MD Primary [...] on file Legal Sex Male 3:07 PM EDITOR IN CHIEF NEWSPAPER Gender Identity Not on file Sexual Orientation Not on file Last Filed Vital Signs Vital Sign Reading Time Taken Comments Blood Pressure 154/88 04/07/2022 3:19 PM EDITOR IN CHIEF NEWSPAPER Pulse 92 04/07/2022 3:19 PM EDITOR IN CHIEF NEWSPAPER Temperature 36.6 C (97.9 F) 04/07/2022 3:19 PM EDITOR IN CHIEF NEWSPAPER Respiratory Rate 16 04/07/2022 3:19 PM EDITOR IN CHIEF NEWSPAPER Oxygen Saturation 97% 04/07/2022 3:19 PM EDITOR IN CHIEF NEWSPAPER Inhaled Oxygen Concentration - - Weight 98.4 kg (217 lb) 04/07/2022 3:19 PM EDITOR IN CHIEF NEWSPAPER Height 182.9 cm (6') 04/07/2022 3:19 PM EDITOR IN CHIEF NEWSPAPER Body Mass Index 29.43 04/07/2022 3:19 PM EDITOR IN CHIEF NEWSPAPER Plan of Treatment Health Maintenance Due Date [...] age to complete this topic Care Teams Speech Therapy Teacher Relationship Specialty Start Date End Date Pcp, No, You have no PCP on file PCP - General 04/07/22 Provider, No Attributed, [facility] [address] PCP - Attributed Provider 04/24/22
--- OUTSIDE RECORDS SUMMARY | 2024-04-28 11:05 | XMS_ITS | Clinical Summary ---
Author Organization [facility] Address [place], [place] [address] Care Team Providers Care Director Of Corporate Sales Name Role Phone Unavailable Primary Care Provider [...] 02/24/2024 3:50 PM CDT Phone Office Visit [facility] [address] [place] [address] Mary Lou Suarez PA Sinus Problem 02/24/2024 Travel 02/23/2024 Telephone [facility] [address] [place] [address] Mary Lou Suarez PA Follow Up 02/10/2024 3:50 PM CDT Office Visit [facility] [address] [place] [address] Mary Lou Suarez PA Sinus Problem 02/10/2024 [...] = 0.6 oz pur e alcohol) occas [facility] Utilities Answer Date Recorded Do you have [...] on file Legal Sex Male 5:17 AM MENTAL TESTER Gender Identity Not on file Sexual Orientation [...] this topic Medical Devices Implanted Type Area State Epidemiologist Device Identifier Shelf Expiration Date Model / Serial / Lot [id number] Lasr Fee [id number] Elvis Fzd Can [[id number]] Implanted:Qty: 1 on 08/30/2011 at [facility] Explanted:at [facility] (Quantity not on file) Spine SPINAL GRAFT 04/01/2014 [id number] / [id number] / Plate Cerv 23mm Premier - [id number] Implanted:Qty: 1 on 08/30/2011 by Mat Moyer MD at [facility] N/A: Spine Medtronic Spine/Ortho [id number] / / Screw Canclls 4.0x14mm Self-Tapping - [id number] Implanted:Qty: 4 on 08/30/2011 by Mat Moyer MD at [facility] N/A: Spine Medtronic Spine/Ortho [id number] / / Ancr Sut 2.3mm Iconix Tt 2 Strand Cuff Tape - [id number] Implanted:Qty: 3 on 11/29/2022 by Julio Juan MD at [facility] Left: Hip [employer] 07/06/2023 [id number] / / [id number] Explanted Type Area State Epidemiologist Device Identifier Shelf Expiration Date Model / Serial / Lot Ancr Sut 4.75mm [place] Knotless - [id number] Explanted:Qty: 2 on 11/29/2022 at [facility] Left: Hip [employer] 2023 [id number] / / [id number] Procedures Procedure Name Priority Date/Time Associated Diagnosis [...] TO QUANT PCR (11/26/2022 8:56 AM CDT) [facility] HCV Ab Non Reactive Non Reactive 11/29/2022 3:[address] [facility] ESOTERIC TESTING (CET) Blood BLOOD SPECIMEN / Unknown Venipuncture / Unknown 11/26/2022 8:56 AM CDT 11/26/2022 8:57 AM CDT [facility] ESOTERIC TESTING (CET) - 11/29/2022 3:08 AM CDT Performed at: [address] [place] [address] [place] [id number] Ip Paralegal: Lenny Lomas MD, Phone: [phone] us Isiah Courtney MD LABORATORY Final Res ult [facility] (CET) [address] [place] [address], * LC HIV-1/O/2, 4TH GENERATION (11/26/2022 8:56 AM CDT) [facility] HIV Scr 4th Gen Non Reactive Non Reactive 11/29/2022 3:[address] [facility] ESOTERIC TESTING (CET) Comment: HIV Negative HIV-1/HIV-2 antibodies and HIV-1 p24 antigen were NOT detected. There is no laboratory evidence of HIV infection. Blood BLOOD SPECIMEN / Unknown Venipuncture / Unknown 11/26/2022 8:56 AM CDT 11/26/2022 8:57 AM CDT [facility] ESOTERIC TESTING (CET) - 11/29/2022 3:08 AM CDT Performed at: - [facility] [address] [place] [id number] Ip Paralegal: Lenny Lomas MD, Phone: [phone] us Isiah Courtney MD LABORATORY Final Res ult Performing Organization Address [facility]/State/ZIP Co de Phone Number [facility] (CET) [address] [place] [address], * (ABNORMAL) LIPID PANEL (11/26/2022 8:56 AM CDT) [facility] CHOLESTEROL,TOTAL 184 100 - 199 mg/dL 11/27/2022 12:16 AM CDT [facility] TRAL LABORATORY Comment: Cholesterol, Total Reference Ranges Desirable <200 mg/dL Borderline 200-239 mg/dL High >=240 mg/dL TRIGLYCERIDES 170(H) <150 mg/dL 11/27/2022 12:16 AM CDT [facility] TRAL LABORATORY HDL CHOLESTEROL 32(L) >40 mg/dL 12:16 AM CDT [facility] TRAL LABORATORY NON-HDL CHOLESTEROL 152(H) <145 mg/dl 11/27/2022 12:16 AM CDT [facility] TRAL LABORATORY CHOL/HDL RATIO 5.75(H) <4.50 11/27/2022 12:16 AM CDT [facility] TRAL LABORATORY LDL CHOLESTEROL 118 <=130 mg/dL 11/27/2022 12:16 AM CDT [facility] TRAL LABOR[facility]ORY VLDL CHOLESTEROL 34(H) <=30 mg/dL 11/27/2022 12:16 AM CDT [facility] TRAL LABORATORY PROVIDER ORDERED STATUS RANDOM 11/27/2022 12:16 AM CDT [facility] TRAL LABORATORY Blood BLOOD SPECIMEN / Unknown Venipuncture / Unknown 11/26/2022 8:56 AM CDT 11/26/2022 8:57 AM CDT us Isiah Courtney MD CHEMISTRY Final Res ult [facility] [address] [place] [address], from Last 3 Months or Most Recently Relevant to Health Maintenance Insurance [facility] FARM Advance Directives * Full Code (Latest [...]
[2024-04-28 11:06] LABS: Alanine Aminotransferase* 44 U/L (4-50); Alkaline Phosphatase* 109 U/L (40-150); Aspartate Amino Transferase* 52 U/L (12-35); Blood Urea Nitrogen* 17 mg/dL (7-30); Calcium* 9.3 mg/dL (8.4-10.6); Glucose* 179 mg/dL (60-115); INR 0.96 (0.91-1.10); Partial Thromboplastin Time* 22 Seconds (23-33); Prothrombin Time 13.4 Seconds; Total Protein* 7.8 g/dL (6.0-8.3)
[2024-04-28 11:07] LABS: Bilirubin Direct* 0.4 mg/dL (0.0-0.5)
[2024-04-28] MEDS: 0.9 % SODIUM CHLORIDE 1000 ml 1,000 ML 500 ML IV ×2 (11:11→16:14)
[2024-04-28 11:14] LABS: C Reactive Protein* < 0.5 mg/dL (0.5-1.0)
[2024-04-28 11:18] LABS: Troponin I* 0.02 ng/mL (0.01-0.04)
[2024-04-28 11:29] LABS: NT Pro B Type NatriureticPept* < 20 pg/mL
[2024-04-28 11:48] LABS: PCR FLU A Negative PCR FLU A (Negative); PCR FLU B Negative PCR FLU B (Negative); PCR RSV Negative PCR RSV (Negative); SARS PCR* Negative SARS-CoV-2 (Negative)
--- NOTE | 2024-04-28 12:17 | CRLHL7_ITS ---
For Patients: As a result of the Century Cures Act, medical imaging exams and procedure reports are released immediately into your electronic medical record. You may view this report before your referring provider. If you have questions, please contact your health care provider. INDICATION: Pancreatitis COMPARISON: Same-day CT abdomen TECHNIQUE: Sonographic evaluation of the right upper abdominal quadrant was performed utilizing cano-scale and color Doppler imaging techniques. FINDINGS: Visualized portion of the IVC is patent. The abdominal aorta is obscured by bowel gas. The pancreas is largely obscured by bowel gas, but the visualized portion of the pancreas is somewhat hypoechoic corresponding to findings of pancreatitis noted on the same-day CT. Smooth hepatic contour. No focal suspicious hepatic lesion is identified. Increased hepatic echogenicity diffusely. Hepatopetal flow within the main portal vein. The liver measures 17.6 centimeters. No appreciable intrahepatic biliary ductal dilation. There is a small amount of sludge in the gallbladder. Gallbladder wall is normal in thickness. No cholelithiasis is identified. No pericholecystic fluid. Negative sonographic Casanova`s sign. Common bile duct measures 8 millimeters in diameter. Right kidney measures 12.5 centimeters. Simple right renal cyst measuring 1.3 centimeters. IMPRESSION: 1. Slight dilation of the common bile duct measuring 8 millimeters. Correlate with LFTs and consider MRCP if clinically warranted. 2. Small amount of sludge within the gallbladder. 3. The pancreas is largely obscured by bowel gas, but the visualized portion of the pancreas is somewhat hypoechoic corresponding to findings of pancreatitis which are better visualized on the same-day CT. 4. Hepatic steatosis. Dictated by William Ge MD @ 04/28/2024 4:55:10 PM (Electronically Signed)
[2024-04-28 12:21] LABS: Lipase* 38396 U/L (23-300)
[2024-04-28] MEDS: HYDROmorphone 0.5 mg/0.5 ml inj IVP ×5 (12:34→21:25)
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
[2024-04-28] MEDS: PANTOPRAZOLE SODIUM 40 MG INJ IVP (15:26)
[2024-04-28 16:09] LABS: Ethanol* < 0.01 % (0.01-0.03)
[2024-04-28] MEDS: KETOROLAC 30 MG/ML inj IVP ×2 (17:29→23:37)
[2024-04-28] MEDS: ACETAMINOPHEN INJ 1,000 MG/100 ML VIAL 400 MG IVPB (17:34)
[2024-04-28] MEDS: 0.9 % SODIUM CHLORIDE 250 ml IV (17:38)
[2024-04-28 18:05] LABS: Appearance Urine Clear (Clear); Bilirubin Urine Negative (Negative); Blood Urine Negative (Negative); Color Urine Yellow (Yellow); Glucose Urine Trace (Negative); Ketones Urine Negative (Negative); Leukocyte Esterase Urine Negative (Negative); Nitrite Urine Negative (Negative); Protein Urine Negative (Negative); Specific Gravity Urine 1.025 (1.000-1.030); Urobilinogen Urine 0.2 (0.2-1.0); pH Urine 5.5 (5.0-8.5)
[2024-04-28 18:07] LABS: RBC Urine 0-2 (0-2); Squamous Epithelial Cell Urine Few (None-Few); WBC Urine 0-2 (0-5)
[2024-04-28 18:11] LABS: Amphetamine Screen Urine Negative (Negative); Barbiturate Screen Urine Negative (Negative); Benzodiazepines Screen Urine Negative (Negative); Cannabinoid Screen Urine Negative (Negative); Cocaine Screen Urine Negative (Negative); Methadone Screen Urine Negative (Negative); Methamphetamines Screen Urine Negative (Negative); Opiate Screen Urine POSITIVE (Negative); Oxycodone Screen Urine Negative (Negative); Phencyclidine Screen Urine Negative (Negative); Tricyclic Antidepressant Urine Negative (Negative)
--- NOTE | 2024-04-28 18:32 | PC.NURSE ---
End of Shift [id number]: Patient pleasant and cooperative, alert and oriented. Patient arrived to the floor by wheelchair about 1500. Patient vitally stable, lungs clear, BS WNL, IV running LR at 125. Patient can ambulated independently. Patient rates abdominal pain at most 8/10, patient given all pain meds once, tylenol, toradol, and dilauded. Patient has otherwise been resting in bed, and urinating well.
[2024-04-28] MEDS: LACTATED RINGERS 1000 ML 1,000 ML 125 ML IV (18:51)
[2024-04-28] MEDS: SODIUM CHLORIDE 0.9 % (FLUSH) 10 ML SYRINGE 5 ML IVF ×2 (21:26→23:37)
[2024-04-28] MEDS: ENOXAPARIN 40 MG/0.4 ML INJ SUBCUT (21:26)
[2024-04-29] MEDS: HYDROmorphone 0.5 mg/0.5 ml inj IVP ×6 (01:30→16:46)
[2024-04-29 03:00] VITALS: BP 130/76; PULSE 104; RESP 18; TEMP 37.1; O2SAT 94
[2024-04-29] MEDS: LACTATED RINGERS 1000 ML 1,000 ML 125 ML IV ×2 (03:43→11:29)
[2024-04-29 03:48] LABS: Hemoglobin A1C* 5.3 % (0-5.6)
[2024-04-29] MEDS: KETOROLAC 30 MG/ML inj IVP ×2 (05:44→11:27)
[2024-04-29 07:00] VITALS: BP 128/78; PULSE 88; RESP 18; TEMP 37.1; O2SAT 100
[2024-04-29 07:09] LABS: Hematocrit 40.6 % (37.0-53.0); Mean Corpuscular HGB Conc 35 gm/dL (32-36); Mean Corpuscular Hemoglobin 32 pg (26-34); Mean Corpuscular Volume 93 fL (80-100); Platelet Count* 203 K/uL (140-440); Red Blood Count 4.37 m/uL (4.30-5.90); White Blood Count* 12.23 K/uL (4.50-11.00)
[2024-04-29 07:31] LABS: Slide Review Reflex No
[2024-04-29 07:40] LABS: Albumin* 3.6 g/dL (3.3-5.0); Chloride* 104 mmol/L (96-114)
[2024-04-29 07:41] LABS: Potassium* 3.8 mmol/L (3.6-5.1); Sodium* 134 mmol/L (135-149)
[2024-04-29 07:42] LABS: Creatinine* 0.7 mg/dL (0.5-1.5); Est. Creatinine Clearance* 124.71; Estimated Glomerular Filt Rate 106 ml/min
[2024-04-29 07:43] LABS: Alanine Aminotransferase* 31 U/L (4-50); Alkaline Phosphatase* 65 U/L (40-150); Anion Gap 5 mEq/L (7-15); Aspartate Amino Transferase* 26 U/L (12-35); Blood Urea Nitrogen* 14 mg/dL (7-30); Carbon Dioxide* 25 mmol/L (20-32); Glucose* 112 mg/dL (60-115); Total Protein* 6.5 g/dL (6.0-8.3)
[2024-04-29 07:44] LABS: Calcium* 8.3 mg/dL (8.4-10.6)
--- NOTE | 2024-04-29 08:01 | PC.NURSE ---
End of shift [phone] - Pt alert, oriented, cooperative. Up independently in room. Tolerating RA and NPO diet. Reporting pain in abdomen rated as 7-8/10. Medication given per MAR with pt reporting tolerating pain. Appears to be resting comfortably in room at end of shift.
[2024-04-29 08:12] LABS: Lipase* 4608 U/L (23-300)
[2024-04-29] MEDS: ONDANSETRON ODT 4 MG TAB PO ×2 (08:28→16:56)
[2024-04-29] MEDS: PANTOPRAZOLE SODIUM 40 MG INJ IVP (08:28)
--- NOTE | 2024-04-29 09:08 | NUTR.NU ---
RDn with diet education related to pancreatitis. Patient admitted with abdominal pain/SOB, found to have new diagnosis of pancreatitis. Patient is currently NPO and having abdominal pain. Not appropriate to offer diet education at this time. RDN will continue to monitor and offer diet education at later date.
--- NOTE | 2024-04-29 09:10 | PM.IMPN1 ---
Progress Note: A&P Assessment and plan (1) Acute pancreatitis without necrosis or infection, unspecified: Problem details: - etiology unclear: patient denies drinking in excess; states 2 beers in the last three days, lipids pending. MRCP ordered - NPO with ice chips, pain and nausea management. - correct elevated lactate with fluids - continue to monitor for complications Status: Acute (2) Obstructive sleep apnea: Problem details: - noncompliant with CPAP Status: Acute (3) Hepatitis B: Problem details: - seroconverted in the - no treatment. no active virus Status: Acute Plan - per above - Dr. Welsh of General Surgery consulted Subjective Date Seen: 04/29/24 Interval history: Patient admitted last night for 1st episode of pancreatitis. Lipase improved, still having quite a bit of pain intolerant of p.o. intake. Still has gallbladder. Mild CBD dilatation on ultrasound, MRCP recommended. Exam Narrative: Exam Narrative: GEN: Alert and oriented, appears uncomfortable but nontoxic HEENT: EOMIs bilaterally, no scleral icterus CV: RRR, No concerning murmurs R: LCTA bilaterally without concerning wheezing Ab: Mild distention, + ttp Ext: wwp, no concerning edema Skin: No concerning skin lesions or rashes on exposed skin Neuro: Nonfocal Psych: Appropriate Const: Vital Signs, click to edit/add: Vital Signs - 24 hr 04/28/24 10:16 04/28/24 10:49 04/28/24 12:40 Temperature 96.8 F L Pulse Rate [Pulse Oximeter] 66 98 Pulse Rate [Right Radial] Respiratory Rate 24 22 Blood Pressure [Le ft Arm] Blood Pressure [Ri ght Upper Arm] 104/68 129/91 H Pulse Oximetry 94 99 93 Oxygen Delivery Me thod Room Air Room Air 04/28/24 15:00 04/28/24 15:01 04/28/24 15:03 Temperature 98.2 F 98.2 F Pulse Rate [Pulse Oximeter] Pulse Rate [Right Radial] 103 H 103 H Respiratory Rate 14 18 18 Blood Pressure [Le ft Arm] 136/82 136/82 Blood Pressure [Ri ght Upper Arm] Pulse Oximetry 92 92 92 Oxygen Delivery Me thod Room Air Room Air Room Air 04/28/24 23:00 04/29/24 03:00 Temperature 99.1 F 98.8 F Pulse Rate [Pulse Oximeter] Pulse Rate [Right Radial] 103 H 104 H Respiratory Rate 18 18 Blood Pressure [Le ft Arm] 128/87 130/76 Blood Pressure [Ri ght Upper Arm] Pulse Oximetry 95 94 Oxygen Delivery Me thod Room Air Room Air Labs Labs: Laboratory Results - last 24 hr 04/28/24 04/28/24 04/28/24 10:32 10:40 11:00 WBC 16.75 H RBC 4.87 Hgb 15.5 Hct 46.0 MCV 95 MCH 32 MCHC 34 RDW Coeff of Kaylan 12.1 Plt Count 308 Neut % (Auto) 92.7 H Lymph % (Auto) 5.3 L [place] % (Auto) 1.7 Eos % (Auto) 0.0 Baso % (Auto) 0.2 Neut # (Auto) 15.50 H Lymph # (Auto) 0.90 [place] # (Auto) 0.30 Eos # (Auto) 0.00 Baso # (Auto) 0.00 Abs Immat Gran (auto) 0.00 Imm/Tot Granulo (auto) 0.1 INR 0.96 APTT 22 L Sodium 139 Potassium 3.6 Chloride 106 Carbon Dioxide 25 Anion Gap 8 BUN 17 Creatinine 0.9 Estimated Creat Clear 97.00 Estimated GFR 98 Glucose 179 H Hemoglobin A1c 5.3 Lactate 2.9 H Calcium 9.3 Total Bilirubin 0.9 Direct Bilirubin 0.4 AST 52 H ALT 44 Alkaline Phosphatase 109 Troponin I 0.02 C-Reactive Protein < 0.5 L NT-Pro-B Natriuret Pep < 20 Total Protein 7.8 Albumin 4.7 Lipase 87496 H Urine Color Urine Appearance Urine pH Ur Specific [place] Urine Protein Urine Glucose (UA) Urine Ketones Urine Blood Urine Nitrite Urine Bilirubin Urine Urobilinogen Ur Leukocyte Esterase Urine RBC Urine WBC Ur Squamous Epith Cells Urine Bacteria Urine Opiates Screen Ur Oxycodone Screen Urine Methadone Screen Ur Barbiturates Screen U Tricyclic Antidepress Ur Phencyclidine Scrn Ur Amphetamines Screen U Methamphetamines Scrn U Benzodiazepines Scrn Urine Cocaine Screen U Marijuana (THC) Screen Ur Drug Screen Comment Ethyl Alcohol < 0.01 L SARS-CoV-2 (PCR) Negative SARS-CoV-2 Influenza Type A (PCR) Negative PCR FLU A Influenza Type B (PCR) Negative PCR FLU B RSV (PCR) Negative PCR RSV Lab Acknowledgement POC Creatinine 1.0 04/28/24 04/28/24 04/28/24 15:42 16:42 17:40 WBC RBC Hgb Hct MCV MCH MCHC RDW Coeff of Kaylan Plt Count Neut % (Auto) Lymph % (Auto) [place] % (Auto) Eos % (Auto) Baso % (Auto) Neut # (Auto) Lymph # (Auto) [place] # (Auto) Eos # (Auto) Baso # (Auto) Abs Immat Gran (auto) Imm/Tot Granulo (auto) INR APTT Sodium Potassium Chloride Carbon Dioxide Anion Gap BUN Creatinine Estimated Creat Clear Estimated GFR Glucose Hemoglobin A1c Lactate Calcium Total Bilirubin Direct Bilirubin AST ALT Alkaline Phosphatase Troponin I C-Reactive Protein NT-Pro-B Natriuret Pep Total Protein Albumin Lipase Urine Color Yellow Urine Appearance Clear Urine pH 5.5 Ur Specific [place] 1.025 Urine Protein Negative Urine Glucose (UA) Trace A Urine Ketones Negative Urine Blood Negative Urine Nitrite Negative Urine Bilirubin Negative Urine Urobilinogen 0.2 Ur Leukocyte Esterase Negative Urine RBC 0-2 Urine WBC 0-2 Ur Squamous Epith Cells Few Urine Bacteria None Urine Opiates Screen POSITIVE A Ur Oxycodone Screen Negative Urine Methadone Screen Negative Ur Barbiturates Screen Negative U Tricyclic Antidepress Negative Ur Phencyclidine Scrn Negative Ur Amphetamines Screen Negative U Methamphetamines Scrn Negative U Benzodiazepines Scrn Negative Urine Cocaine Screen Negative U Marijuana (THC) Screen Negative Ur Drug Screen Comment See Note Ethyl Alcohol SARS-CoV-2 (PCR) Influenza Type A (PCR) Influenza Type B (PCR) RSV (PCR) Lab Acknowledgement Test Added Test Added POC Creatinine 04/29/24 06:47 WBC 12.23 H RBC 4.37 Hgb 14.0 Hct 40.6 MCV 93 MCH 32 MCHC 35 RDW Coeff of Kaylan Plt Count 203 Neut % (Auto) Lymph % (Auto) [place] % (Auto) Eos % (Auto) Baso % (Auto) Neut # (Auto) Lymph # (Auto) [place] # (Auto) Eos # (Auto) Baso # (Auto) Abs Immat Gran (auto) Imm/Tot Granulo (auto) INR APTT Sodium 134 L Potassium 3.8 Chloride 104 Carbon Dioxide 25 Anion Gap 5 L BUN 14 Creatinine 0.7 Estimated Creat Clear 124.71 Estimated GFR 106 Glucose 112 Hemoglobin A1c Lactate 1.0 Calcium 8.3 L Total Bilirubin 1.0 Direct Bilirubin AST 26 ALT 31 Alkaline Phosphatase 65 Troponin I C-Reactive Protein 26.0 H NT-Pro-B Natriuret Pep Total Protein 6.5 Albumin 3.6 Lipase 4608 H Urine Color Urine Appearance Urine pH Ur Specific [place] Urine Protein Urine Glucose (UA) Urine Ketones Urine Blood Urine Nitrite Urine Bilirubin Urine Urobilinogen Ur Leukocyte Esterase Urine RBC Urine WBC Ur Squamous Epith Cells Urine Bacteria Urine Opiates Screen Ur Oxycodone Screen Urine Methadone Screen Ur Barbiturates Screen U Tricyclic Antidepress Ur Phencyclidine Scrn Ur Amphetamines Screen U Methamphetamines Scrn U Benzodiazepines Scrn Urine Cocaine Screen U Marijuana (THC) Screen Ur Drug Screen Comment Ethyl Alcohol SARS-CoV-2 (PCR) Influenza Type A (PCR) Influenza Type B (PCR) RSV (PCR) Lab Acknowledgement POC Creatinine
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
[2024-04-29 09:34] LABS: Cholesterol* 110 mg/dL (90-199); HDL Cholesterol* 52 mg/dL (>=40); LDL Cholesterol Calculated 49 mg/dL (<100); Triglycerides* 45 mg/dL (40-149)
--- NOTE | 2024-04-29 10:25 | CRLHL7_ITS ---
For Patients: As a result of the Century Cures Act, medical imaging exams and procedure reports are released immediately into your electronic medical record. You may view this report before your referring provider. If you have questions, please contact your health care provider. INDICATION: Abdominal pain, possible pancreatitis TECHNIQUE: 1.5 T MRI of the abdomen was performed with pre and postcontrast T1 weighted imaging; T2 weighted imaging; diffusion weighted imaging; in and out of phase imaging. 20 mL Dotarem administered COMPARISON: Same day CT abdomen pelvis and abdominal ultrasound FINDINGS: Lungs: Bibasal atelectasis. No pleural or pericardial effusion. Liver: Homogeneous liver parenchyma. No hepatic masses. No hepatic steatosis Biliary tree and gallbladder: Fluid-filled distended gallbladder without stones. No intrahepatic biliary dilation. Mild dilation of the common bile duct measuring up to 8 mm. Possible filling defect at the distal common bile duct versus prominent ampullary tissue (5/13). Spleen: Unremarkable Pancreas: Moderate peripancreatic edema, most pronounced around tail. The pancreatic parenchyma is otherwise unremarkable, no evidence necrosis or mass. No pancreatic duct dilation. No peripancreatic fluid collection. Adrenal glands: Unremarkable. Kidneys and ureters: No renal masses or hydronephrosis. Subcentimeter left renal cyst GI tract: No evidence of obstruction or inflammation. Small duodenal diverticulum Vasculature: The IVC and aorta are patent. No abdominal aortic aneurysm. Lymph nodes: No lymphadenopathy. Abdominal wall: Unremarkable Bones: Multilevel degenerative change of the imaged spine. Postsurgical changes of the lumbosacral spine. IMPRESSION: 1. Similar findings of acute interstitial edematous pancreatitis. No peripancreatic fluid collection. Please correlate with lipase levels. 2. Distended gallbladder with similar mildly dilated common bile duct and possible choledocholithiasis versus prominent ampullary tissue. Please correlate with biliary labs to evaluate for possible obstruction. Consider ERCP for further evaluation. Dictated by Johanna Giles MD @ 04/29/2024 12:53:27 PM (Electronically Signed)
[2024-04-29 11:00] VITALS: BP 135/92; PULSE 94; RESP 18; TEMP 37.1; O2SAT 95
[2024-04-29 15:00] VITALS: BP 149/92; PULSE 104; PULSE 94; RESP 18; TEMP 36.6; O2SAT 95
--- NOTE | 2024-04-29 18:41 | PC.NURSE ---
shift note: vss stable. pt rating pain 7-8/10 across abd. pt medicated with prn dilaudid, toradol. Pt nauseated x2 and received prn zofran with relief. BS active x4. Pt states last bm 04/28/24. Pt abd tender on palaption and pt states he feels slightly distended. Pt up indept in halls. IV x2 patent.
--- NOTE | 2024-04-29 19:45 | PC.NURSE ---
pt transfer via ambulance to [facility]. telephone nurse to nurse given to [facility] prior to transfer
--- NOTE | 2024-04-29 22:48 | PM.DST ---
Transfer Discharge Sum: Prov Provider Date Seen: 04/29/24 Date of admission: 04/28/24 14:58 Primary care physician: Marty Holguin MD Admitting clinician: Bessie Naranjo Attending physician on admission: Bessie Naranjo Attending physician on discharge: Bessie Naranjo Discharging clinician: Bessie Naranjo Anticipated date of transfer: 04/29/24 Receiving physician/facility: Tonia Cadena. Dr. Cervantes, GI, excepting for ERCP. Hospitalist, Dr. Valero, accepting peer DS: Diagnosis Discharge Diagnosis (1) Acute pancreatitis without necrosis or infection, unspecified: Status: Acute Problem details: - etiology unclear: patient denies drinking in excess; states 2 beers in the last three days, lipids pending. MRCP ordered - NPO with ice chips, pain and nausea management. - correct elevated lactate with fluids - continue to monitor for complications (2) Choledocholithiasis: Status: Acute Problem details: Positive MRCP, transfer for ERCP. Transfer Discharge Sum: Med Medications Active and Home Medications: Home Medications No Known Home Medications 04/09/23 [History Confirmed 04/28/24] Transfer Discharge Sum: Hosp Hospital Course Hospital course: Baldemar Narvaez is a 59 year old male Time Spent with Patient Time attestation: Total time spent providing and/or coordinating transfer services: Total time spent: Greater than 30 minutes Exam Narrative: Exam Narrative: Him improved from admission PHYSICAL EXAM: CONSTITUTIONAL: Conversive, good historian. A/O. Knows setting and context. looks uncomfortable. GENERAL: Well-developed and above ideal body weight, in no respiratory distress. VITAL SIGNS: see record. HEENT: Sclerae are anicteric. No petechiae. CARDIAC: rhythm is regular. There is no S3 or rub. No harsh murmurs. Extremities show trace edema with symmetrical pulses. PULM: good air entry with no wheeze. ABDOMEN: obese; tender upper quadrants; hurts to take a deep breath. NEURO: Speech is fluent. A brief neurologic exam is negative. SKIN: No rashes, petechiae, concerning changes PSYCHIATRIC: Euthymic. Const: Vital Signs, click to edit/add: Vital Signs - 24 hr 04/28/24 23:00 04/29/24 03:00 04/29/24 07:00 Temperature 99.1 F 98.8 F 98.7 F Pulse Rate [Right Radial] 103 H 104 H 88 Respiratory Rate 18 18 18 Blood Pressure [Le ft Arm] 128/87 130/76 128/78 Pulse Oximetry 95 94 100 Oxygen Delivery Me thod Room Air Room Air Room Air 04/29/24 11:00 04/29/24 15:00 04/29/24 15:00 Temperature 98.8 F 97.8 F Pulse Rate [Right Radial] 94 104 H 94 Respiratory Rate 18 18 18 Blood Pressure [Le ft Arm] 135/92 H 149/92 H Pulse Oximetry 95 95 Oxygen Delivery Me thod Room Air Room Air Transfer Discharge Sum: Data Data Completed and Pending Completed studies during hospitalization: Abdominal ultrasound, abdominal pelvic CT with contrast, abdominal MRCP Additional Comments Additional comments: HOSPITALIST TRANSFER SUMMARY ATTENDING PHYSICIAN: Bessie Naranjo MD REASON FOR TRANSFER ERCP for choledocholithiasis causing acute pancreatitis BRIEF HOSPITAL COURSE: Douglas is a healthy 59-year-old who was admitted for acute pancreatitis on April 28. The etiology of his pancreatitis was unclear initially. His abdominal ultrasound and abdomen pelvic CT did not conclusively point to a gallbladder etiology. MRCP this morning was more definitive for a retained stone. Thus he is being transferred for an ERCP. His CRP was climbing, his white blood cell count was still elevated. His pain was still requiring IV opioids. SERVICES NOT AVAILABLE HERE THAT THIS PATIENT NEEDS: Gastroenterology procedures ACCEPTING PHYSICIAN/SERVICE/LOCATION: Dr. Anjum Castellon MEDICATIONS AT TIME OF TRANSFER: IV Toradol, IV acetaminophen, lactated Ringer's, IV hydromorphone REVIEW OF SYSTEMS Unchanged. PHYSICAL EXAM: CONSTITUTIONAL: VITAL SIGNS: see record. Exam unchanged from earlier with notable exceptions: DISPOSITION: Transfer by non emergent ALS to [facility] Time spent on discharge >30 minutes. This includes speaking with accepting physician; family/patient and coordinating meds/drips for transfer Transfer Discharge Sum: A/P Plan Functional capacity at transfer: bed bound Overall status at transfer: patient is not back to baseline Discharge Plan Discharge Disposition: [facility] Date of Admission: 04/28/24 14:58 Attending Provider on Discharge: Bessie Naranjo Primary Care Provider: Marty Holguin Discharge Orders: Transfer of Care to Other Hospital (ORDER); Ordered 04/29/24 Ordered By: Bessie Naranjo Oxygen: No Urinary Catheter: No
== END 2024-04-29 19:15 | disposition short-term general hospital (02) | DRG 282 ==
LOC: ED 12:27 → MEDSURG 14:46
PROVIDERS: Family Medicine; Admitting Provider Family Medicine; Emergency Provider Family Medicine; PCP Family Medicine; Visit Provider Family Medicine
DX: K85.90 Acute pancreatitis without necrosis or infection, unspecified (principal); G47.33 Obstructive sleep apnea (adult) (pediatric); Z86.19 Personal history of other infectious and parasitic diseases; K80.50 Calculus of bile duct without cholangitis or cholecystitis without obstruction
CPT/HCPCS: 36415; 74177; 74183; 76705; 80053; 80061; 80306; 81001; 82077; 82248; 82565; 83036; 83605; 83690; 83880; 84484; 85025; 85027; 85610; 85730; 86140; 87631; 93005; 94761; 99285; A9270; A9575; J0131; J1171; J1650; J1885; J2270; J2405; J2470; J7030; J7050; J7120; Q9967

== ENCOUNTER 2024-04-29 19:10 | Outpatient (CLI) | payer BC, SELFPAY | END 2024-04-29 19:11 | disposition home or self-care (01) | LOC: AMB 05-08 01:33 | PROVIDERS: PCP Family Medicine; Visit Provider Family Medicine | DX: K85.90 Acute pancreatitis without necrosis or infection, unspecified (principal) | CPT/HCPCS: A0425; A0433 ==